=== PATIENT | female | born 1930 | race Caucasian/White ===

== ENCOUNTER 2019-09-13 09:06 | Inpatient (IN) ==
[2019-09-13] MEDS ORDERED: ONDANSETRON 4 MG/2 ML VIAL IV ONE (09:30)
--- NOTE | 2019-09-13 09:40 | Emergency Department Note ---
Lower Extremity Injury HPI - General Chief Complaint: Extremity Injury, Lower Stated Complaint: Hip fracture Time Seen by Provider: 09/13/19 09:10 Source: EMS Mode of arrival: EMS Limitations: no limitations - History of Present Illness HPI Narrative: This pleasant 89-year-old female lives with her son and [id number] in [facility] and was transferred here after was found to have a left intertrochanteric hip fracture from a fall yesterday. It was reported as a ground-level fall with no head injury or loss of consciousness although may have bumped her head. She is not on any chronic anticoagulants but was unable to walk and was further evaluated after transfer up by EMS to the local pharmacy and then transferred here for more definitive treatment of her left intertrochanteric hip fracture. REVIEW OF SYSTEMS: Experiencing nausea but not vomiting. Other history of uncertain reliability due to dementia. - Related Data Home Medications Medication Instructions Recorded Confirmed Acetaminophen [Acetaminophen Extra 500 mg PO Q6H PRN 09/13/19 09/13/19 Strength] Ferrous Sulfate [Iron] 325 mg PO Q2D 09/13/19 09/13/19 HYDROcodone/ACETAMINOPHEN [[place] 1 each PO Q12HP PRN 09/13/19 09/13/19 5-325 Tablet] Nystatin 1 dose TOPICAL BID 09/13/19 09/13/19 Omeprazole [Prilosec] 20 mg PO ACB 09/13/19 09/13/19 QUEtiapine [Seroquel] 100 mg PO HS 09/13/19 09/13/19 Sertraline [Zoloft] 50 mg PO DAILY 09/13/19 09/13/19 Previous Rx's Medication Instructions Recorded HYDROcodone/APAP 5/325MG [[place] 1 tab PO Q4-6HP PRN #60 tab 09/15/19 5-325Mg] Amoxicillin 500 mg PO TID #12 cap 09/16/19 Enoxaparin [Lovenox] 30 mg SQ BID #56 syringe 09/17/19 Allergies Allergy/AdvReac Type Severity Reaction Status Date / Time No Known Drug Allergies Allergy Verified 09/13/19 09:07 Past Medical History - Past Medical History PMFSH Narrative: Medical History (Last Updated 09/13/19 @ 09:35 by Matthew Younegr DO) 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) use of opiate analgesic (Chronic) Dementia (Chronic) History of pneumonia (Chronic) Anemia (Chronic) Osteoarthritis (Chronic) Gastric outlet obstruction (Chronic) Weight loss, unintentional (Chronic) Past Surgical History (Last Updated 09/13/19 @ 09:40 by Matthew Younger DO) History of appendectomy (Acute) History of bilateral knee replacement (Acute) History of cholecystectomy (Acute) History of colonoscopy (Acute) History of elbow surgery (Acute) History of hysterectomy (Acute) History of right hip replacement (Acute) - Social History smoking status: Never smoker Physical Exam Limitations: no limitations General appearance: alert, in no apparent distress, other (Pleasant but occasional mild retching) Head: atraumatic Eye: Present: EOMI ENT: Present: other (Lips and tongue somewhat dry.) Neck: Present: trachea midline. Absent: lymphadenopathy, thyromegaly Chest: Present: symmetric chest wall rise Respiratory: Present: normal lung sounds bilaterally. Absent: respiratory di stress, wheezes, stridor, accessory muscle use, prolonged expiratory phase Cardiovascular: Present: regular rate, normal rhythm. Absent: systolic murmur, diastolic murmur Abdominal: Present: soft, other (Has some extra folds of tissue from weight lo ss.). Absent: distention, tenderness, guarding, rebound, rigidity, organomegaly, mass Extremities: Present: other (Both lower extremities are externally rotated but her left hip hurts quite a bit with any movement but at rest pain seems to be well controlled.). Absent: pedal edema, pretibial edema, calf tenderness Neurological: Present: alert, CN II-XII intact. Absent: oriented X3 Psychiatric: Present: normal affect, polite, pleasant. Absent: agitated Skin: Present: warm, dry Course Vital Signs Temperature 97.9 F 09/13/19 09:07 Pulse Rate 76 09/13/19 09:07 Respiratory Rate 16 09/13/19 09:07 Blood Pressure 139/74 09/13/19 09:07 Pulse Oximetry (%) 96 09/13/19 09:07 Temperature 98.4 F 09/17/19 08:00 Pulse Rate 73 09/17/19 08:00 Respiratory Rate 18 09/17/19 08:00 Blood Pressure 127/76 09/17/19 08:00 Pulse Oximetry (%) 95 09/17/19 08:00 Extremity Injury, Lower - MDM Narrative Medical decision making narrative: 9:32 AM - interviewed and examined. History gathered from chart from transfer. Family not present at this point in time. Left hip intertrochanteric fracture from a ground-level fall that was not witnessed. No other specific trauma noted. In her chart is a pressure ulcer stage I. This was not examined due to her hip fracture. She has several medical conditions of anemia, gastric outlet obstruction, weight loss, unintentional, dementia, arthritis and a UTI. I will give IV antibiotic as 1 g of Ancef to cover for the UTI and possibly surgery. EKG is unremarkable with no signs of ACS. Her vital signs are stable. Her risks are moderate based on age and underlying conditions. We will check a Chem-8 (recheck hemoglobin) and give a liter of fluid over couple of hours; has very dry lips. Ondansetron ordered for her nausea/retching. In her chart also is that she has been on chronic narcotics. This is not able to be clarified at this point in time. CODE STATUS needs to be clarified as well. Family apparently is coming shortly. Seems relatively stable to be able to go to surgery when available. - Lab Data Result diagrams: 09/15/19 16:05 09/15/19 05:35 Lab Results 09/13/19 Range/Units 09:54 POC Hct 33.0 L (36.0-48.0) % POC Sodium 139 (133-145) mmol/L POC Potassium 4.7 (3.3-5.1) mmol/L POC Chloride 106 (96-108) mmol/L POC Total CO2 27 (22-30) mmol/L POC BUN 29 H (8-23) mg/dl POC Creatinine 0.9 (0.6-1.1) mg/dl POC Glucose 147 H (70-105) mg/dL POC WB Ioniz Calcium 1.33 H (1.16-1.32) mmol/L Disposition Pt seen by SUPERVISOR FINAL/PA only: No Clinical Impression: Fall from ground level Hip fracture, left Qualifiers: Encounter type: subsequent encounter Fracture type: closed Fracture healing: with routine healing Qualified Code(s): S72.002D - Fracture of unspecified part of neck of left femur, subsequent encounter for closed fracture with routine hea ling Dementia Qualifiers: Dementia type: unspecified type Dementia behavioral disturbance: without behavioral disturbance Qualified Code(s): F03.90 - Unspecified dementia without behavioral disturbance UTI (urinary tract infection) Qualifiers: Urinary tract infection type: acute cystitis Hematuria presence: without megan turia Qualified Code(s): N30.00 - Acute cystitis without hematuria Disposition: Xfer As Outpt/Obs ([facility]) Condition: Fair
[2019-09-13 10:01] LABS: POC Blood Urea Nitrogen 29 mg/dl (8-23); POC CO2 27 mmol/L (22-30); POC Calcium, Ionized 1.33 mmol/L (1.16-1.32); POC Chloride 106 mmol/L (96-108); POC Creatinine 0.9 mg/dl (0.6-1.1); POC Glucose, Random 147 mg/dL (70-105); POC Potassium 4.7 mmol/L (3.3-5.1); POC Sodium 139 mmol/L (133-145)
[2019-09-13] MEDS ORDERED: ceFAZolin 1 GM VIAL IV ONE (10:05)
[2019-09-13] MEDS: 0.9 % SODIUM CHLORIDE 1,000 ML IV SCH ×4 (10:18→21:22)
--- NOTE | 2019-09-13 10:41 | Internal Med History&Physical ---
Medical - H&P: HPI Patient information: Note initiated : 09/13/19 at 10:36 am Service Date, if different from initiated Date: [] Patient: Margarita Kathleen 89 y/o F admitted on for Hip fracture. Chief Complaint: [] History of present illness: Ms. Kathleen is a 89 year old F Who resides in [facility] living with her son and [id number]-axb and suffered a ground-level fall. No LOC. Patient was found to have a left hip fracture. Patient transferred here for surgery by Dr. Salguero. States she got up in the middle the night several nights ago and lost her balance. Patient's hip pain is currently controlled. Currently in preop Review of Systems: Pertinent positives as above. Denies headache/fever/ chills/nausea/vomiting/chest or abdominal pain/cough/dyspnea/diarrhea. 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) use of opiate analgesic (Chronic) Dementia (Chronic) History of pneumonia (Chronic) Anemia (Chronic) Osteoarthritis (Chronic) Gastric outlet obstruction (Chronic) Weight loss, unintentional (Chronic) Past Surgical History (Last Updated 09/13/19 @ 09:40 by Matthew Younger DO) History of appendectomy (Acute) History of bilateral knee replacement (Acute) History of cholecystectomy (Acute) History of colonoscopy (Acute) History of elbow surgery (Acute) History of hysterectomy (Acute) History of right hip replacement (Acute) Family history: Had breast cancer Father is healthy Social history: Patient denies tobacco or alcohol Ambulates with walker Lives with her son and [id number] Medical - H&P: Meds Home Medications Medication Instructions Recorded Confirmed Type Acetaminophen [Acetaminophen Extra 500 mg PO Q6H PRN 09/13/19 09/13/19 History Strength] Ferrous Sulfate [Iron] 325 mg PO Q2D 09/13/19 09/13/19 History HYDROcodone/ACETAMINOPHEN [[place] 1 each PO Q12HP PRN 09/13/19 09/13/19 History 5-325 Tablet] Nystatin [Kenalog] 1 dose TOPICAL BID 09/13/19 09/13/19 History Omeprazole [PriLOSEC] 20 mg PO ACB 09/13/19 09/13/19 History QUEtiapine [SEROquel] 100 mg PO HS 09/13/19 09/13/19 History Sertraline [Zoloft] 50 mg PO DAILY 09/13/19 09/13/19 History Allergies Allergy/AdvReac Type Severity Reaction Status Date / Time No Known Drug Allergies Allergy Verified 09/13/19 09:07 Medical - H&P: Exam - Constitutional Vitals: Temp Pulse Resp BP Pulse Ox 97.9 F 73 16 125/69 91 09/13/19 10:34 09/13/19 10:34 09/13/19 10:34 09/13/19 10:34 09/13/19 10:34 Exam: General: Alert, Awake, No acute Distress Eyes/N/T: EOMI, PERRL, dry MM Head/Neck: neck supple, normocephalic atraumatic CV: RRR, No murmurs, normal s1/s2 Pulm: Clear b/l, no wheezing/rhonchi/rales Abd: soft, nontender, +BS x4 Ext: no clubbing/cyanosis/edema. Left lower extremity shortened and externally rotated Neuro: Alert, no focal deficits, moves all extremities, CN 2-12 grossly intact, symmetrical strength b/l upper/lower, sensations intact b/l upper/lower Skin: warm/dry Medical - H&P: A/P - Narrative A/P Narrative: A: *Left hip fracture: *Dementia: *Depression/anxiety: *GERD: *MOJGAN: * P: -Noemy for Ortho -Pain control -Hi risk for post-op delirium -Continue home psych meds - -DT/OT -ppx: Stopped per Ortho/home PPI clarify code status
[2019-09-13] MEDS ORDERED: IPRATROPIUM/ALBUTEROL 3 ML AMPUL.NEB NEB PRN ×2 (10:55→12:19)
[2019-09-13] MEDS ORDERED: POTASSIUM CHLORIDE 20 MEQ TABLET PO PRN ×2 (10:55)
[2019-09-13] MEDS ORDERED: MAGNESIUM SULFATE 2 GM/50 ML BAG IV PRN (10:55)
[2019-09-13] MEDS ORDERED: POLYETHYLENE GLYCOL 3350 17 GM PACKET PO PRN (10:55)
[2019-09-13] MEDS ORDERED: ACETAMINOPHEN 325 MG TABLET PO PRN (10:55)
[2019-09-13] MEDS ORDERED: SENNOSIDES 1 TABLET PO PRN (10:55)
[2019-09-13] MEDS ORDERED: ONDANSETRON 4 MG/2 ML VIAL IV PRN ×2 (10:55→12:19)
[2019-09-13] MEDS ORDERED: POTASSIUM CHLORIDE 40 MEQ in DEXTROSE 5% IN WATER 500 ML IV PRN (10:55)
[2019-09-13] MEDS ORDERED: ceFAZolin 2 GM in DEXTROSE 5% IN WATER 50 ML IV SCH ×2 (11:00→12:30)
[2019-09-13] MEDS ORDERED: LIDOCAINE HCL/PF 100 MG/5 ML SYRINGE IV ONE (11:35)
[2019-09-13] MEDS ORDERED: DEXAMETHASONE 10 MG/ML VIAL IV ONE (11:35)
[2019-09-13] MEDS ORDERED: PROPOFOL 200 MG/20 ML VIAL IV ONE (11:35)
[2019-09-13] MEDS ORDERED: ACETAMINOPHEN 700 MG/70 ML BOTTLE IV ONE (12:19)
[2019-09-13] MEDS ORDERED: MEPERIDINE 25 MG/ML SYRINGE IV PRN (12:19)
[2019-09-13] MEDS ORDERED: fentaNYL 100 MCG/2 ML VIAL IV PRN (12:19)
[2019-09-13] MEDS ORDERED: LACTATED RINGERS 250 ML IV PRN (12:19)
[2019-09-13] MEDS ORDERED: PROMETHAZINE 25 MG/ML VIAL IV PRN (12:19)
[2019-09-13] MEDS ORDERED: NALOXONE HCL 0.4 MG/ML VIAL IV PRN (12:19)
[2019-09-13] MEDS ORDERED: FLUMAZENIL 0.1 MG/ML ML IV PRN (12:19)
[2019-09-13] MEDS ORDERED: diphenhydrAMINE 50 MG/ML VIAL IV PRN (12:19)
[2019-09-13] MEDS ORDERED: KETOROLAC 15 MG/ML VIAL IV PRN (12:21)
[2019-09-13] MEDS ORDERED: BENZOCAINE/MENTHOL 1 LOZENGE PO PRN (12:21)
[2019-09-13] MEDS ORDERED: BISACODYL 10 MG SUPP.RECT PR PRN (12:21)
[2019-09-13] MEDS ORDERED: FLEETS ADULT ENEMA PR PRN (12:21)
[2019-09-13] MEDS ORDERED: MAGNESIUM HYDROXIDE 30 ML ORAL.SUSP PO PRN (12:21)
--- NOTE | 2019-09-13 12:21 | Brief Operative Note ---
Date of procedure: 09/13/19 Pre-op diagnosis: Left intertrochanteric hip fracture, closed Post-op diagnosis: same Procedure: Open treatment internal fixation of Left hip intertrochanteric fracture with intramedullary arline fixation Grafts/Implants: Yes ([place] gamma nail, short) Anesthesia: GLMA Findings: extreme osteoporosis Complications: none Surgeon: Lester Salguero Management Trainee: Tai Cervantes Estimated blood loss (cc): 100 Specimens Removed/Pathology: none sent Condition: stable Disposition: PACU
[2019-09-13] MEDS ORDERED: LACTATED RINGERS 1,000 ML IV SCH (12:30)
--- NOTE | 2019-09-13 13:18 | Operative Note ---
DATE OF OPERATION: 09/13/2019 PREOPERATIVE DIAGNOSIS: Left hip closed intertrochanteric fracture. POSTOPERATIVE DIAGNOSIS: Left hip closed intertrochanteric fracture. PROCEDURE PERFORMED: Open treatment and internal fixation of left intertrochanteric hip fracture with intramedullary fixation using a short gamma nail. SURGEON: Lester Salguero MD RN PERINATAL: Tai Cervantes PA-C. This provider's expertise and technical skill were required throughout the case. The PA assisted with preoperative coordination, intraoperative retraction, wound closure, dressing and splint application, as well as postoperative documentation and care coordination. ANESTHESIA: By general. DRAINS: None. SPECIMENS: None. COMPLICATIONS: None. BLOOD LOSS: 100 mL POSTOPERATIVE CONDITION: Fair. INDICATIONS FOR SURGERY: This is an 89-year-old female who fell last night injuring her left hip. She is unable to bear weight. X-rays taken showed an intertrochanteric fracture. FINDINGS AT SURGERY: She had severe osteoporosis with an intertrochanteric hip fracture. There was also a femoral plate extending up to mid femur as well. Post-fixation showed satisfactory fracture reduction and hardware in acceptable position. PROCEDURE IN DETAIL: The patient had been seen in preoperative holding. Informed consent had been obtained after discussion of risks and benefits of surgery. Risks including, but not limited to, bleeding; infection; injury to nerves, blood vessels, and other surrounding structures; anesthetic risks; nonunion or malunion of fracture; failure of hardware fixation; possibility of needing further surgery; and DVT and pulmonary embolus risks. She seemed to understand as best possible, so patient was taken directly to operating room and general anesthesia induced. She was carefully positioned on the fracture table and the left leg was placed in some gentle traction with internal rotation. The left hip and leg were then carefully prepped and draped in normal sterile fashion and then a shower curtain drape was placed. Fluoroscopy was used to identify our incision starting point just proximal to greater trochanter and this was made in line with the femur. Hemostasis was obtained with Bovie cautery. We continued with the Bovie down through the IT band. Blunt finger dissection was taken down on the tip of the trochanter and then a guide pin was placed under fluoroscopic guidance starting on the tip of the trochanter extending down to approximately the level of the lesser. We checked the lateral view. We did have to adjust pin position until we were centered in the head. AP view, we were inferior to center, but we felt that would be helpful given her extreme osteoporosis. We then used the opening reamer over the guide pin. We then used a 08/31 short gamma nail and this was passed over the guide pin. An incision was made lateral and then the sleeve was taken down to bone. We adjusted the nail height so the lag screw would be on the inferior half of the neck and centered on the lateral view. We then used an opening drill and then a guide pin was passed up and adjusted so we were central on the lateral view and on the inferior half of the head on the AP. We measured this to be an 80 screw. We used the step reamer to ream to 80 and an 80 lag screw was opened. This was advanced over the guide pin until we were within a cm of the articular surface on both AP and lateral view. The locking screw was then placed in the proximal end of the nail and advanced until it would not turn, then we backed off a quarter turn to allow sliding compression. The guide pin was removed. We then removed the sleeve and the distal sleeve was passed through the jig and a stab incision made distally. The sleeve was taken down on the bone. We then drilled the distal interlocking screw bicortical, measured a 35, so a 3.5 screw was opened. This was advanced until it got all the way down to cortical bone. Final fluoro images were taken and saved, AP and lateral views proximal and distal. We then irrigated copiously with saline. The proximal fascia was closed with a running #1 Vicryl. More irrigation was done and 2-0 Monocryl was used for subcutaneous and michelle for skin. Xeroform sterile dressings were applied. The patient was then awakened, extubated, and transferred to recovery in satisfactory condition. AIXA:erlinda Job ID: [id number] Doc ID: [id number] Lester Salguero MD
[2019-09-13] MEDS: 0.9 % SODIUM CHLORIDE 10 ML SYRINGE IV SCH ×2 (14:13→22:07)
--- NOTE | 2019-09-13 14:38 | XRay Report ---
CLINICAL INFORMATION: left hip gamma nail orif intertrochanteric fracture COMPARISON: None. FINDINGS: Digital images from the OR show intertrochanteric fracture reduced to anatomic alignment and transfixed by gamma nail. Severe degeneration in the left hip IMPRESSION: ORIF intertrochanteric fracture transfixed by gamma nail - anatomic alignment. Interpreted and Authenticated by: Iftikhar Hill 09/13/19
[2019-09-13] MEDS: HYDROcodone/APAP 5/325MG TABLET PO PRN (14:51)
[2019-09-13] MEDS ORDERED: WARFARIN 3 MG TABLET PO ONE (18:00)
[2019-09-13] MEDS: ceFAZolin 1 GM VIAL IV SCH (19:51)
[2019-09-13] MEDS: QUEtiapine 100 MG TABLET PO SCH (22:06)
[2019-09-13] MEDS: DOCUSATE SODIUM 100 MG CAPSULE PO SCH (22:06)
[2019-09-13] MEDS: FAMOTIDINE 20 MG TABLET PO SCH (22:06)
[2019-09-14] MEDS: ceFAZolin 1 GM VIAL IV SCH (04:02)
[2019-09-14] MEDS: 0.9 % SODIUM CHLORIDE 10 ML SYRINGE IV SCH ×3 (06:08→20:17)
[2019-09-14 07:08] LABS: Basophils # (Auto) 0.01 K/mcL (0.00-0.30); Basophils % (Auto) 0.2 % (0.0-2.0); Eosinophils # (Auto) 0 K/mcL (0.00-0.70); Eosinophils % (Auto) 0 % (0.0-7.0); Hematocrit 24.3 % (34.1-44.9); Lymphocytes # (Auto) 0.73 K/mcL (1.50-4.80); Lymphocytes % (Auto) 16.7 % (15.5-49.0); Mean Cell Volume 98.4 fL (80.0-100.0); Mean Corpuscular HGB Conc 32.9 g/dL (31.0-36.0); Mean Platelet Volume 10.5 fL (7.4-10.4); Monocytes # (Auto) 0.44 K/mcL (0.10-0.90); Monocytes % (Auto) 10.1 % (1.0-12.0); Platelet Count 116 K/mcL (140-440); RBC 2.47 M/mcL (3.59-5.38); Red Cell Distribution Width 13.1 % (11.5-14.5); WBC 4.4 K/mcL (4.50-11.00)
[2019-09-14 07:43] LABS: INR 1.2 (0.9-1.1); Prothrombin Time 15.8 sec (11.9-14.5)
[2019-09-14 07:58] LABS: ALT/SGPT 7 U/l (0-40); AST/SGOT 10 U/l (0-37); Albumin/Globulin Ratio 1.7 (1.0-2.3); Alkaline Phosphatase 67 U/L (39-117); Bilirubin,Direct < 0.2 mg/dL (0.0-0.3); Bilirubin,Total 0.3 mg/dL (0.0-1.0); Blood Urea Nitrogen 25 mg/dl (8-23); Calcium 8.8 mg/dl (8.6-10.4); Carbon Dioxide 22 mmol/L (22-30); Globulin 1.8 gm/dL (2.2-3.7); Glomerular Filtration Rate 66; Glucose 116 mg/dL (70-105); Lactate Dehydrogenase 143 U/L (94-250); Phosphorous 2.4 mg/dL (2.7-4.5); Triglycerides 83 mg/dl (<150); Uric Acid 3.6 mg/dL (2.5-8.0)
[2019-09-14 08:00] LABS: Chloride 109 mmol/L (96-108)
--- NOTE | 2019-09-14 08:15 | Internal Med Progress Note ---
Medical - PN: Subj Patient information: Note initiated : 09/14/19 at 8:10 am Service Date, if different from initiated Date: [] Patient: Margarita Kathleen 89 y/o F admitted on 09/13/19 for Hip fracture. Chief Complaint: [] Interval history: Ms. Kathleen is a 89 year old F Who resides in [facility] living with her son and akxrtsgc-qm-ysy and suffered a ground-level fall. No LOC. Patient was found to have a left hip fracture. Patient transferred here for surgery by Dr. Salguero. States she got up in the middle the night several nights ago and lost her balance. Patient's hip pain is currently controlled. Currently in preop 09/14 Tolerated surgery well last yesterday. No overnight events or new complaints. Review of Systems: denies headache/fever/chills/nausea/vomiting/chest or abdominal pain/ cough/dyspnea/diarrhea. Otherwise see above. - Constitutional Vitals: Vital Signs Temp Pulse Resp BP Pulse Ox 98.4 F 82 16 95/53 94 09/14/19 07:16 09/14/19 04:00 09/14/19 07:16 09/14/19 07:16 09/14/19 07:16 Period Temp Pulse Resp BP Sys/Kahn Pulse Ox Last 24 Hr 97.4 F-99.9 F 67-82 10-20 87-139/50-86 90-100 Intake and Output 09/13/19 09/14/19 09/14/19 21:59 05:59 13:59 Intake Total 1050 50 Output Total 100 250 Balance 950 -200 Weight 46.584 kg Intake & Output: Intake & Output 09/13/19 09/14/19 09/14/19 21:59 05:59 13:59 Intake Total 1050 50 Output Total 100 250 Balance 950 -200 Weight 46.584 kg Intake: IV 1000 Sodium Chloride 0.9% 1,000 ml @ 1000 250 mls/hr IV .Q4H [facility] Rx#: [id number] Oral 50 50 Output: Urine Catheter Amount 100 250 Other: Urine Appearance Clear Uretheral (Reddy) Clear Urine Color Dark Alejandra Uretheral (Reddy) Dark Alejandra Exam: General: Alert, Awake, No acute Distress Eyes/N/T: EOMI, Head/Neck: neck supple, CV: RRR, No murmurs, Pulm: Clear b/l, no wheezing/rhonchi/rales Abd: soft, nontender, +BS x4 Ext: no clubbing/cyanosis/edema. Neuro: Alert, no focal deficits, moves all extremities, Skin: warm/dry Medical - PN: Obj Da - Labs CBC & Chem 7: 09/14/19 05:50 09/14/19 05:50 Labs: Abnormal Lab Results 09/14/19 09/14/19 09/14/19 05:50 05:50 05:50 WBC 4.4 L RBC 2.47 L Hgb 8.0 L Hct 24.3 L POC Hct Plt Count 116 L MPV 10.5 H Lymph # (Auto) 0.73 L PT 15.8 H INR 1.2 H Chloride 109 H Anion Gap 6.0 L POC BUN BUN 25 H Glucose 116 H POC Glucose POC WB Ioniz Calcium Phosphorus 2.4 L Total Protein 4.8 L Albumin 3.0 L Globulin 1.8 L 09/13/19 09:54 WBC RBC Hgb Hct POC Hct 33.0 L Plt Count MPV Lymph # (Auto) PT INR Chloride Anion Gap POC BUN 29 H BUN Glucose POC Glucose 147 H POC WB Ioniz Calcium 1.33 H Phosphorus Total Protein Albumin Globulin Meds: Medications Acetaminophen (Tylenol) 650 mg PO Q6HP PRN PRN Reason: PAIN/FEVER > 101 Hydrocodone Bitart/Acetaminophen ([place] 5/325mg) 1 tab PO Q4HP PRN PRN Reason: PAIN LEVEL 3-6 Last Admin: 09/13/19 14:51 Dose: 1 tab Documented by: Albuterol/Ipratropium (Duoneb) 3 ml NEB Q4HP PRN PRN Reason: Shortness Of Breath Bisacodyl (Dulcolax) 10 mg [place] Q2-3DAYS PRN PRN Reason: Constipation Docusate Sodium (Colace) 100 mg PO BID [facility] Last Admin: 09/13/19 22:06 Dose: 100 mg Documented by: Famotidine (Pepcid) 20 mg PO BID [facility] Last Admin: 09/13/19 22:06 Dose: 20 mg Documented by: Potassium Chloride 40 meq/ (Dextrose) 520 mls @ 130 mls/hr IV UD PRN PRN Reason: Potassium < 3 Magnesium Sulfate (Magnesium Sulfate) 2 gm in 50 mls @ 50 mls/hr IV UD PRN PRN Reason: Magnesium </= 1.6 Sodium Chloride (Sodium Chloride 0.9%) 1,000 mls @ 60 mls/hr IV .[id number] [facility] Last Admin: 09/13/19 21:22 Dose: 60 mls/hr Documented by: Ketorolac Tromethamine (Toradol) 15 mg IV Q6HP PRN; Protocol PRN Reason: Per Pain Protocol Stop: 09/15/19 12:23 Last Admin: 09/13/19 21:30 Dose: 15 mg Documented by: Magnesium Hydroxide (Milk Of Magnesia) 30 ml PO BIDP PRN PRN Reason: Constipation Morphine Sulfate (Morphine) 0 mg IV Q1HP PRN; Protocol PRN Reason: Per Pain Protocol Ondansetron HCl (Zofran) 4 mg IV Q4HP PRN PRN Reason: Nausea And Vomiting Polyethylene Glycol (Miralax) 17 gm PO DAILYP PRN PRN Reason: Constipation Potassium Chloride (Kdur) 40 meq PO UD PRN PRN Reason: Potssium is 3-3.5 Potassium Chloride (Kdur) 40 meq PO UD PRN PRN Reason: Potassium < 3 Quetiapine Fumarate (Seroquel) 100 mg PO HS [facility] Last Admin: 09/13/19 22:06 Dose: 100 mg Documented by: Aretha (Senokot) 2 tab PO DAILYP PRN PRN Reason: Constipation Sertraline HCl (Zoloft) 50 mg PO DAILY [facility] Sodium Biphosphate/Sodium Phosphate (Fleets Adult) 1 dose [place] Q3-4DAYS PRN PRN Reason: Constipation Sodium Chloride (Saline Flush) 10 ml IV Q8 [facility] Last Admin: 09/14/19 06:08 Dose: Not Given Documented by: Throat Lozenges (Cepacol) 1 lozenge PO PRN PRN PRN Reason: Sore Throat Warfarin Sodium (Coumadin Per Pharmacy) 1 order PO [facility] [place] [facility] Medical - PN: A/P - Time Spent With Patient Total time spent is greater than 50% in coordination of care (as documented) at patient's floor/unit and/or counseling patient: - Narrative A/P Narrative: A: *Left hip fracture: s/p ORIF (09/13) *Dementia: *Depression/anxiety: *GERD: *MOJGAN +post-op anemia with component of dilution: * P: -Noemy for Ortho -Pain control -High risk for post-op delirium -monitor H&H, f/u -Continue home psych meds - -PT/OT -ppx: warfarin per pharm/home PPI DNR Medical - PN: Qual - VTE Deep Vein Thrombosis/Pulmonary Embolism Present on Admission: No
[2019-09-14] MEDS: DOCUSATE SODIUM 100 MG CAPSULE PO SCH ×2 (08:41→20:16)
[2019-09-14] MEDS: SERTRALINE 50 MG TABLET PO SCH (08:41)
[2019-09-14] MEDS: FAMOTIDINE 20 MG TABLET PO SCH ×2 (08:41→20:16)
[2019-09-14] MEDS: HYDROcodone/APAP 5/325MG TABLET PO PRN ×2 (11:39→20:16)
--- NOTE | 2019-09-14 11:47 | Orthopedic Progress Note ---
Subjective Patient information: Note initiated : 09/14/19 at 11:45 am Service Date, if different from initiated Date: [] Patient: Margarita Kathleen 89 y/o F admitted on 09/13/19 for Hip fracture. Chief Complaint: [] Principal diagnosis: Left hip intertroch fracture Interval history: c/o pain in hip Objective Vital signs: Vital Signs Temp Pulse Resp BP Pulse Ox 09/14/19 08:00 98.4 F 16 93/53 94 09/14/19 07:16 98.4 F 16 95/53 94 09/14/19 04:00 98.7 F 82 20 98/56 92 09/14/19 00:00 98.0 F 74 15 87/50 93 09/13/19 19:45 95 09/13/19 19:30 98.6 F 79 18 91/56 95 09/13/19 17:00 99.4 F H 75 20 120/75 92 09/13/19 16:00 99.5 F H 20 124/71 92 09/13/19 15:51 73 132/67 93 09/13/19 14:15 74 131/76 92 09/13/19 14:00 67 136/75 100 09/13/19 13:45 70 136/63 09/13/19 13:30 69 139/78 100 09/13/19 13:24 97.4 F 73 14 131/76 91 09/13/19 13:05 99.1 F H 69 12 138/62 91 09/13/19 12:50 71 10 L 135/73 99 09/13/19 12:45 71 12 138/86 100 09/13/19 12:40 70 13 131/75 100 09/13/19 12:34 99.9 F H 79 12 119/70 99 Intake and Output 09/13/19 09/14/19 09/14/19 21:59 05:59 13:59 Intake Total 1050 50 Output Total 100 250 Balance 950 -200 Intake: IV 1000 Sodium Chloride 0.9% 1,000 ml @ 1000 250 mls/hr IV .Q4H [facility] Rx#: [id number] Oral 50 50 Output: Urine Catheter Amount 100 250 Other: Urine Appearance Clear Clear Uretheral (Reddy) Clear Clear Urine Color Dark Alejandra Dark Alejandra Uretheral (Reddy) Dark Alejandra Dark Alejandra Urine Odor Strong Weight 102 lb 11.2 oz Intake & Output: Intake & Output 09/13/19 09/14/19 09/14/19 21:59 05:59 13:59 Intake Total 1050 50 Output Total 100 250 Balance 950 -200 Weight 102 lb 11.2 oz Intake: IV 1000 Sodium Chloride 0.9% 1,000 ml @ 1000 250 mls/hr IV .Q4H [facility] Rx#: [id number] Oral 50 50 Output: Urine Catheter Amount 100 250 Other: Urine Appearance Clear Clear Uretheral (Reddy) Clear Clear Urine Color Dark Alejandra Dark Alejandra Uretheral (Reddy) Dark Alejandra Dark Alejandra Urine Odor Strong Dressing: Yes intact (w some shadow drainage) Neurological exam IM: Yes alert - Labs CBC & BMP: 09/14/19 05:50 09/14/19 05:50 Labs: Orthopedic Labs 09/14/19 05:50 PT 15.8 H INR 1.2 H 09/14/19 05:50 Hgb 8.0 L Hct 24.3 L Assessment and Plan (1) Hip fracture, left POD#1 s/p ORIF L IT fx-ortho stable -monitor hgb and BP, possibly transfuse -mobilize as possible -pain control -likely d/c to swing bed on Monday Status: Acute Qualifiers: Encounter type: subsequent encounter Fracture type: closed Fracture healing: with routine healing Qualified Code(s): S72.002D - Fracture of unspecified part of neck of left femur, subsequent encounter for closed fracture with routine healing
[2019-09-14] MEDS ORDERED: WARFARIN 3 MG TABLET PO ONE (14:00)
[2019-09-14] MEDS: 0.9 % SODIUM CHLORIDE 1,000 ML IV SCH (14:21)
[2019-09-14 15:34] LABS: Hemoglobin 8.4 g/dL (11.2-15.7)
[2019-09-14] MEDS: QUEtiapine 100 MG TABLET PO SCH (20:16)
[2019-09-14] MEDS ORDERED: 0.9 % SODIUM CHLORIDE 250 ML IV ONE (22:55)
[2019-09-15] MEDS: HYDROcodone/APAP 5/325MG TABLET PO PRN ×3 (04:07→20:04)
[2019-09-15] MEDS: 0.9 % SODIUM CHLORIDE 1,000 ML IV SCH (05:08)
[2019-09-15 06:52] LABS: INR 1.6 (0.9-1.1); Prothrombin Time 19.5 sec (11.9-14.5)
[2019-09-15 07:06] LABS: Basophils # (Auto) 0.01 K/mcL (0.00-0.30); Basophils % (Auto) 0.2 % (0.0-2.0); Eosinophils # (Auto) 0.12 K/mcL (0.00-0.70); Eosinophils % (Auto) 2.4 % (0.0-7.0); Granulocytes % (Auto) 69.6 % (38.0-78.0); Hematocrit 23.9 % (34.1-44.9); Hemoglobin 7.6 g/dL (11.2-15.7); Lymphocytes # (Auto) 1.01 K/mcL (1.50-4.80); Lymphocytes % (Auto) 20.5 % (15.5-49.0); Mean Cell Volume 100.4 fL (80.0-100.0); Mean Corpuscular HGB Conc 31.8 g/dL (31.0-36.0); Mean Platelet Volume 10.5 fL (7.4-10.4); Monocytes # (Auto) 0.36 K/mcL (0.10-0.90); Monocytes % (Auto) 7.3 % (1.0-12.0); Platelet Count 110 K/mcL (140-440); RBC 2.38 M/mcL (3.59-5.38); Red Cell Distribution Width 13.4 % (11.5-14.5); WBC 4.9 K/mcL (4.50-11.00)
[2019-09-15 07:51] LABS: Bilirubin,Direct < 0.2 mg/dL (0.0-0.3)
[2019-09-15 08:21] LABS: ALT/SGPT < 5 U/l (0-40); AST/SGOT 9 U/l (0-37); Albumin 2.9 gm/dL (3.2-5.2); Albumin/Globulin Ratio 1.4 (1.0-2.3); Alkaline Phosphatase 66 U/L (39-117); Bilirubin,Total 0.3 mg/dL (0.0-1.0); Blood Urea Nitrogen 31 mg/dl (8-23); Calcium 8.4 mg/dl (8.6-10.4); Carbon Dioxide 20 mmol/L (22-30); Chloride 109 mmol/L (96-108); Globulin 2.1 gm/dL (2.2-3.7); Glomerular Filtration Rate 66; Glucose 117 mg/dL (70-105); Lactate Dehydrogenase 147 U/L (94-250); Phosphorous 2.3 mg/dL (2.7-4.5); Triglycerides 68 mg/dl (<150); Uric Acid 3.6 mg/dL (2.5-8.0)
--- NOTE | 2019-09-15 08:34 | Internal Med Progress Note ---
Medical - PN: Subj Patient information: Note initiated : 09/15/19 at 8:29 am Service Date, if different from initiated Date: [] Patient: aMrgarita Kathleen 89 y/o F admitted on 09/13/19 for Hip fracture. Chief Complaint: [] Interval history: Ms. Kathleen is a 89 year old F Who resides in [facility] living with her son and [id number] and suffered a ground-level fall. No LOC. Patient was found to have a left hip fracture. Patient transferred here for surgery by Dr. Salguero. States she got up in the middle the night several nights ago and lost her balance. Patient's hip pain is currently controlled. Currently in preop 09/14 Tolerated surgery well last yesterday. No overnight events or new complaints. 09/15 Patient little tachycardia's morning hemoglobin dropped to 7.6. Systolic blood pressure in the 90s. Will transfuse 1 unit of blood. Patient denies any pains or complaints. Review of Systems: denies headache/fever/chills/nausea/vomiting/chest or abdominal pain/cough/dyspnea/diarrhea. Otherwise see above. - Constitutional Vitals: Vital Signs Temp Pulse Resp BP Pulse Ox 97.9 F 108 H 16 96/62 97 09/15/19 07:38 09/15/19 07:38 09/15/19 07:38 09/15/19 07:38 09/15/19 07:38 Period Temp Pulse Resp BP Sys/Kahn Pulse Ox Last 24 Hr 97.9 F-99 F 79-114 14-20 91-123/53-64 91-97 Intake and Output 09/14/19 09/15/19 09/15/19 21:59 05:59 13:59 Intake Total 1920 1187 250 Output Total 200 200 Balance 1720 987 250 Weight 49.986 kg Intake & Output: Intake & Output 09/14/19 09/15/19 09/15/19 21:59 05:59 13:59 Intake Total 1920 1187 250 Output Total 200 200 Balance 1720 987 250 Weight 49.986 kg Intake: IV 1000 887 250 Sodium Chloride 0.9% 1,000 ml @ 1000 887 60 mls/hr IV .[id number] [facility] Rx#: [id number] Sodium Chloride 0.9% 250 ml @ 250 125 mls/hr IV BOLUS ONE Rx#: [id number] Oral 920 300 Output: Urine Catheter Amount 200 200 Other: Meal orange sherbert orange miriam Percent of Meal Consumed 100% 100% Feeding Ability Total Assistance Total Assistance Urine Appearance Clear Uretheral (Reddy) Clear Urine Color Dark Yellow Uretheral (Reddy) Dark Alejandra Exam: General: Alert, Awake, No acute Distress Eyes/N/T: EOMI, Head/Neck: neck supple, CV: RRR, No murmurs, Pulm: Clear b/l, no wheezing/rhonchi/rales Abd: soft, nontender, +BS x4 Ext: no clubbing/cyanosis/edema. Neuro: Alert, no focal deficits, moves all extremities, Skin: warm/dry Medical - PN: Obj Da - Labs CBC & Chem 7: 09/15/19 05:35 09/15/19 05:35 Labs: Abnormal Lab Results 09/15/19 09/15/19 09/15/19 05:35 05:35 05:35 WBC RBC 2.38 L Hgb 7.6 L Hct 23.9 L POC Hct MCV 100.4 H Plt Count 110 L MPV 10.5 H Lymph # (Auto) 1.01 L PT 19.5 H INR 1.6 H Chloride 109 H Carbon Dioxide 20 L Anion Gap POC BUN BUN 31 H Glucose 117 H POC Glucose Calcium 8.4 L POC WB Ioniz Calcium Phosphorus 2.3 L Total Protein 5.0 L Albumin 2.9 L Globulin 2.1 L 09/14/19 09/14/19 09/14/19 15:00 05:50 05:50 WBC RBC Hgb 8.4 L Hct 26.0 L POC Hct MCV Plt Count MPV Lymph # (Auto) PT 15.8 H INR 1.2 H Chloride 109 H Carbon Dioxide Anion Gap 6.0 L POC BUN BUN 25 H Glucose 116 H POC Glucose Calcium POC WB Ioniz Calcium Phosphorus 2.4 L Total Protein 4.8 L Albumin 3.0 L Globulin 1.8 L 09/14/19 09/13/19 05:50 09:54 WBC 4.4 L RBC 2.47 L Hgb 8.0 L Hct 24.3 L POC Hct 33.0 L MCV Plt Count 116 L MPV 10.5 H Lymph # (Auto) 0.73 L PT INR Chloride Carbon Dioxide Anion Gap POC BUN 29 H BUN Glucose POC Glucose 147 H Calcium POC WB Ioniz Calcium 1.33 H Phosphorus Total Protein Albumin Globulin Meds: Medications Acetaminophen (Tylenol) 650 mg PO Q6HP PRN PRN Reason: PAIN/FEVER > 101 Hydrocodone Bitart/Acetaminophen ([place] 5/325mg) 1 tab PO Q4HP PRN PRN Reason: PAIN LEVEL 3-6 Last Admin: 09/15/19 04:07 Dose: 1 tab Documented by: Albuterol/Ipratropium (Duoneb) 3 ml NEB Q4HP PRN PRN Reason: Shortness Of Breath Bisacodyl (Dulcolax) 10 mg [place] Q2-3DAYS PRN PRN Reason: Constipation Docusate Sodium (Colace) 100 mg PO BID [facility] Last Admin: 09/14/19 20:16 Dose: 100 mg Documented by: Famotidine (Pepcid) 20 mg PO BID [facility] Last Admin: 09/14/19 20:16 Dose: 20 mg Documented by: Potassium Chloride 40 meq/ (Dextrose) 520 mls @ 130 mls/hr IV UD PRN PRN Reason: Potassium < 3 Magnesium Sulfate (Magnesium Sulfate) 2 gm in 50 mls @ 50 mls/hr IV UD PRN PRN Reason: Magnesium </= 1.6 Sodium Chloride (Sodium Chloride 0.9%) 1,000 mls @ 60 mls/hr IV .[id number] [facility] Last Admin: 09/15/19 05:08 Dose: 60 mls/hr Documented by: Ketorolac Tromethamine (Toradol) 15 mg IV Q6HP PRN; Protocol PRN Reason: Per Pain Protocol Stop: 09/15/19 12:23 Last Admin: 09/13/19 21:30 Dose: 15 mg Documented by: Magnesium Hydroxide (Milk Of Magnesia) 30 ml PO BIDP PRN PRN Reason: Constipation Morphine Sulfate (Morphine) 0 mg IV Q1HP PRN; Protocol PRN Reason: Per Pain Protocol Last Admin: 09/14/19 20:14 Dose: 4 mg Documented by: Ondansetron HCl (Zofran) 4 mg IV Q4HP PRN PRN Reason: Nausea And Vomiting Polyethylene Glycol (Miralax) 17 gm PO DAILYP PRN PRN Reason: Constipation Potassium Chloride (Kdur) 40 meq PO UD PRN PRN Reason: Potssium is 3-3.5 Potassium Chloride (Kdur) 40 meq PO UD PRN PRN Reason: Potassium < 3 Quetiapine Fumarate (Seroquel) 100 mg PO HS [facility] Last Admin: 09/14/19 20:16 Dose: 100 mg Documented by: Senna (Senokot) 2 tab PO DAILYP PRN PRN Reason: Constipation Sertraline HCl (Zoloft) 50 mg PO DAILY [facility] Last Admin: 09/14/19 08:41 Dose: 50 mg Documented by: Sodium Biphosphate/Sodium Phosphate (Fleets Adult) 1 dose [place] Q3-4DAYS PRN PRN Reason: Constipation Sodium Chloride (Saline Flush) 10 ml IV Q8 [facility] Last Admin: 09/14/19 20:17 Dose: Not Given Documented by: Throat Lozenges (Cepacol) 1 lozenge PO PRN PRN PRN Reason: Sore Throat Warfarin Sodium (Coumadin Per Pharmacy) 1 order PO UD [facility] Warfarin Sodium (Coumadin) 1 mg PO ONCE@1400 ONE Stop: 09/15/19 14:01 Medical - PN: A/P - Time Spent With Patient Total time spent is greater than 50% in coordination of care (as documented) at patient's floor/unit and/or counseling patient: - Narrative A/P Narrative: A: *Left hip fracture: s/p ORIF (09/13) *Dementia: *Depression/anxiety: *GERD: *MOJGAN +post-op anemia: * P: -[facility] -Pain control -High risk for post-op delirium -monitor H&H, 1prbc -Continue home psych meds - -PT/OT -ppx: warfarin per pharm/home PPI DNR Medical - PN: Qual - VTE Deep Vein Thrombosis/Pulmonary Embolism Present on Admission: No
[2019-09-15] MEDS ORDERED: 0.9 % SODIUM CHLORIDE 250 ML IV SCH (08:45)
[2019-09-15] MEDS: 0.9 % SODIUM CHLORIDE 10 ML SYRINGE IV SCH ×3 (08:45→21:37)
[2019-09-15] MEDS: DOCUSATE SODIUM 100 MG CAPSULE PO SCH ×2 (08:57→20:04)
[2019-09-15] MEDS: FAMOTIDINE 20 MG TABLET PO SCH ×2 (08:57→20:04)
[2019-09-15] MEDS: SERTRALINE 50 MG TABLET PO SCH (08:57)
--- NOTE | 2019-09-15 09:50 | Orthopedic Progress Note ---
Subjective Patient information: Note initiated : 09/15/19 at 9:50 am Service Date, if different from initiated Date: [] Patient: Margarita Kathleen 89 y/o F admitted on 09/13/19 for left Hip fracture. Pt denies SOB, CP, N/V, abd pain, fevers/chills Chief Complaint: left hip pain Principal diagnosis: Left hip intertroch fracture Pertinent ROS: negative except per HPI. Objective Vital signs: Vital Signs Temp Pulse Resp BP BP BP Pulse Ox 09/15/19 07:38 97.9 F 108 H 16 96/62 97 09/15/19 03:55 98.5 F 114 H 16 93/64 97 09/14/19 22:40 98.7 F 106 H 14 91/53 92 09/14/19 20:00 98 F 79 16 92/60 91 09/14/19 19:09 98 F 79 16 92/60 91 09/14/19 16:00 98.2 F 20 123/58 95 09/14/19 12:00 99 F 20 99/55 96 Intake and Output 09/14/19 09/15/19 09/15/19 21:59 05:59 13:59 Intake Total 1920 1187 467 Output Total 200 200 Balance 1720 987 467 Intake: IV 1000 887 467 Sodium Chloride 0.9% 1,000 ml @ 1000 887 217 60 mls/hr IV .[id number] [facility] Rx#: [id number] Sodium Chloride 0.9% 250 ml @ 250 125 mls/hr IV BOLUS ONE Rx#: [id number] Oral 920 300 Output: Urine Catheter Amount 200 200 Other: Meal orange sherbert orange sherbert Percent of Meal Consumed 100% 100% Feeding Ability Total Assistance Total Assistance Urine Appearance Clear Uretheral (Reddy) Clear Urine Color Dark Yellow Uretheral (Reddy) Dark Alejandra Weight 110 lb 3.2 oz Intake & Output: Intake & Output 09/14/19 09/15/19 09/15/19 21:59 05:59 13:59 Intake Total 1920 1187 467 Output Total 200 200 Balance 1720 987 467 Weight 110 lb 3.2 oz Intake: IV 1000 887 467 Sodium Chloride 0.9% 1,000 ml @ 1000 887 217 60 mls/hr IV .[id number] [facility] Rx#: [id number] Sodium Chloride 0.9% 250 ml @ 250 125 mls/hr IV [facility] ONE Rx#: [id number] Oral 920 300 Output: Urine Catheter Amount 200 200 Other: Meal orange miriam pineda Percent of Meal Consumed 100% 100% Feeding Ability Total Assistance Total Assistance Urine Appearance Clear Uretheral (Reddy) Clear Urine Color Dark Yellow Uretheral (Reddy) Dark Alejandra Dressing: Yes intact (moderate shadow drainage noted.) Weight bearing status: partial (30% WB with LLE.) Neurological exam IM: Yes alert, Yes oriented X3, Yes neurovascular intact Extremities exam IM: No calf tenderness, Yes normal inspection, No Kaela's sign, Yes neurovascular intact - Labs CBC & BMP: 09/15/19 05:35 09/15/19 05:35 Labs: Orthopedic Labs 09/15/19 09/14/19 05:35 05:50 PT 19.5 H 15.8 H INR 1.6 H 1.2 H 09/15/19 09/14/19 09/14/19 05:35 15:00 05:50 Hgb 7.6 L 8.4 L 8.0 L Hct 23.9 L 26.0 L 24.3 L Assessment and Plan (1) Hip fracture, left Status: Acute Qualifiers: Encounter type: subsequent encounter Fracture type: closed Fracture healing: with routine healing Qualified Code(s): S72.002D - Fracture of uns pecified part of neck of left femur, subsequent encounter for closed fracture with routine healing - Narrative A/P Narrative: 89 y/o F POD 2 s/p ORIF left hip fracture with CM nail. Her pain is managed. --H&H trending downward today. Consider transfusion per hospitalist. --f/u with orthopedics in 2 weeks for staple removal and postoperative wound check. --change silver dressing if saturated before discharge. --PT/OT: 30% WB with assistive device --continue pain medications --continue diet --prophy: ambulation, SCDs, warfarin per pharmacy, IS --dispo: likely d/c to swing bed tmrw in [place].
--- NOTE | 2019-09-15 10:02 | Discharge Summary ---
Medical - DS: Prov Patient information: Note initiated : 09/15/19 at 10:00 am Service Date, if different from initiated Date: [] Patient: Margarita Kathleen 89 y/o F admitted on 09/13/19 for Hip fracture. Chief Complaint: [] Date of admission: 09/13/19 13:24 Consults: 09/13/19 Consult to Physician [CONS] Stat Comment: Consulting Provider: Lester Salguero Reason For Exam: Physician to Consult Consult to Physician [CONS] Stat Comment: Consulting Provider: Yo Saez Reason For Exam: Physician to Consult Medical - DS: Meds - Discharge Medications Prescriptions: Amoxicillin 500 mg PO TID #12 capsule HYDROcodone/APAP 5/325MG [[place] 5-325Mg] 1 tab PO Q4-6HP PRN #60 tab PRN Reason: Pain Prescription Printed Active and Home Medications: Home Medications Acetaminophen [Acetaminophen Extra Strength] 500 mg PO Q6H PRN 09/13/19 [History Confirmed 09/13/19 Last Taken Unknown] Ferrous Sulfate [Iron] 325 mg PO Q2D 09/13/19 [History Confirmed 09/13/19 Last Taken Unknown] HYDROcodone/ACETAMINOPHEN [[place] 5-325 Tablet] 1 each PO Q12HP PRN 09/13/19 [History Confirmed 09/13/19 Last Taken Unknown] Nystatin [Kenalog] 1 dose TOPICAL BID 09/13/19 [History Confirmed 09/13/19 Last Taken Unknown] Omeprazole [PriLOSEC] 20 mg PO ACB 09/13/19 [History Confirmed 09/13/19 Last Taken Unknown] QUEtiapine [SEROquel] 100 mg PO HS 09/13/19 [History Confirmed 09/13/19 Last Taken Unknown] Sertraline [Zoloft] 50 mg PO DAILY 09/13/19 [History Confirmed 09/13/19 Last Taken Unknown] Medical - DS: Hosp Hospital Course: Ms. Kathleen is a 89 year old F Who resides in [facility] living with her son and [id number] and suffered a ground-level fall. No LOC. Patient was found to have a left hip fracture. Patient transferred here for surgery by Dr. Salguero. States she got up in the middle the night several nights ago and lost her balance. Patient's hip pain is currently controlled. Currently in preop 09/14 Tolerated surgery well last yesterday. No overnight events or new complaints. 09/15 Patient little tachycardia's morning hemoglobin dropped to 7.6. Systolic blood pressure in the 90s. Will transfuse 1 unit of blood. Patient denies any pains or complaints. A: *Left hip fracture: s/p ORIF (09/13) *Dementia: *Depression/anxiety: *GERD: *MOJGAN +post-op anemia: * Discharge diagnosis: Left hip fracture dementia depression anxiety GERD anemia - Time Spent with Patient Total time spent providing and/or coordinating discharge services: Greater than 30 minutes Medical - DS: Exam - Constitutional Vitals: Vital Signs Temp Pulse Resp BP BP BP Pulse Ox 09/15/19 07:38 97.9 F 108 H 16 96/62 97 09/15/19 03:55 98.5 F 114 H 16 93/64 97 09/14/19 22:40 98.7 F 106 H 14 91/53 92 09/14/19 20:00 98 F 79 16 92/60 91 09/14/19 19:09 98 F 79 16 92/60 91 09/14/19 16:00 98.2 F 20 123/58 95 09/14/19 12:00 99 F 20 99/55 96 Intake and Output 09/14/19 09/15/19 09/15/19 21:59 05:59 13:59 Intake Total 1920 1187 467 Output Total 200 200 Balance 1720 987 467 Intake: IV 1000 887 467 Sodium Chloride 0.9% 1,000 ml @ 1000 887 217 60 mls/hr [facility][id number] [facility] Rx#: [id number] Sodium Chloride 0.9% 250 ml @ 250 125 mls/hr IV [facility] ONE Rx#: [id number] Oral 920 300 Output: Urine Catheter Amount 200 200 Other: Meal orange sherbert orange sherbert Percent of Meal Consumed 100% 100% Feeding Ability Total Assistance Total Assistance Urine Appearance Clear Uretheral (Reddy) Clear Urine Color Dark Yellow Uretheral (Reddy) Dark Alejandra Weight 49.986 kg Medical - DS: Data Labs on day of discharge: Labs from last 24 hours 09/15/19 09/15/19 09/15/19 05:35 05:35 05:35 WBC 4.9 RBC 2.38 L Hgb 7.6 L Hct 23.9 L MCV 100.4 H MCH 31.9 MCHC 31.8 RDW 13.4 Plt Count 110 L MPV 10.5 H Gran % 69.6 Lymph % (Auto) 20.5 [place] % (Auto) 7.3 Eos % (Auto) 2.4 Baso % (Auto) 0.2 Gran # 3.43 Lymph # (Auto) 1.01 L [place] # (Auto) 0.36 Eos # (Auto) 0.12 Baso # (Auto) 0.01 PT 19.5 H INR 1.6 H Sodium 137 Potassium 4.2 Chloride 109 H Carbon Dioxide 20 L Anion Gap 8.0 BUN 31 H Creatinine 0.8 GFR Calculation 66 Glucose 117 H Uric Acid 3.6 Calcium 8.4 L Phosphorus 2.3 L Magnesium 1.6 Total Bilirubin 0.3 Direct Bilirubin < 0.2 GGT 14 AST 9 ALT < 5 Alkaline Phosphatase 66 Lactate Dehydrogenase 147 Total Protein 5.0 L Albumin 2.9 L Globulin 2.1 L Albumin/Globulin Ratio 1.4 Triglycerides 68 09/14/19 15:00 WBC RBC Hgb 8.4 L Hct 26.0 L MCV MCH MCHC RDW Plt Count MPV Gran % Lymph % (Auto) [place] % (Auto) Eos % (Auto) Baso % (Auto) Gran # Lymph # (Auto) [place] # (Auto) Eos # (Auto) Baso # (Auto) PT INR Sodium Potassium Chloride Carbon Dioxide Anion Gap BUN Creatinine GFR Calculation Glucose Uric Acid Calcium Phosphorus Magnesium Total Bilirubin Direct Bilirubin GGT AST ALT Alkaline Phosphatase Lactate Dehydrogenase Total Protein Albumin Globulin Albumin/Globulin Ratio Triglycerides Medical - DS: A/P - Patient/Caregiver Discharge Instructions Activity: as per physical therapy Diet: Regular Diet Prescriptions: HYDROcodone/APAP 5/325MG [[place] 5-325Mg] 1 tab PO Q4-6HP PRN #60 tab PRN Reason: Pain Prescription Printed Other Amb Orders: OT Discharge Order Location: None Selected Physical Therapy at Discharge - General Location: None Selected - Follow up Plan Follow up with: Lester Salguero MD [Physician] - Prognosis: Fair Rehab Potential: Fair I certify that the patient requires SNF services: Yes Overall status at discharge: patient is progressing back to baseline Medical - DS: Qual - VTE Deep Vein Thrombosis/Pulmonary Embolism Present on Admission: No
[2019-09-15] MEDS ORDERED: WARFARIN 1 MG TABLET PO ONE (14:00)
[2019-09-15] MEDS: PIPERACILLIN SODIUM/TAZOBACTAM 2.25 GM in DEXTROSE 5% IN WATER 50 ML IV SCH ×2 (16:30→21:35)
[2019-09-15 17:19] LABS: Hematocrit 31.1 % (34.1-44.9); Hemoglobin 10.1 g/dL (11.2-15.7)
[2019-09-15] MEDS: QUEtiapine 100 MG TABLET PO SCH (20:04)
[2019-09-16] MEDS: PIPERACILLIN SODIUM/TAZOBACTAM 2.25 GM in DEXTROSE 5% IN WATER 50 ML IV SCH ×2 (06:01→11:10)
[2019-09-16] MEDS: 0.9 % SODIUM CHLORIDE 10 ML SYRINGE IV SCH ×3 (06:35→20:29)
[2019-09-16 07:04] LABS: INR 1.9 (0.9-1.1); Prothrombin Time 22.5 sec (11.9-14.5)
[2019-09-16] MEDS: HYDROcodone/APAP 5/325MG TABLET PO PRN ×3 (09:09→20:28)
[2019-09-16] MEDS: SERTRALINE 50 MG TABLET PO SCH (09:09)
[2019-09-16] MEDS: DOCUSATE SODIUM 100 MG CAPSULE PO SCH ×2 (09:09→20:28)
[2019-09-16] MEDS: FAMOTIDINE 20 MG TABLET PO SCH ×2 (09:09→20:28)
--- NOTE | 2019-09-16 09:10 | Internal Med Progress Note ---
Medical - PN: Subj Patient information: Note initiated : 09/16/19 at 9:08 am Service Date, if different from initiated Date: [] Patient: Margarita Kathleen 89 y/o F admitted on 09/13/19 for Hip fracture. Chief Complaint: [] Interval history: Ms. Kathleen is a 89 year old F Who resides in [facility] living with her son and [id number] and suffered a ground-level fall. No LOC. Patient was found to have a left hip fracture. Patient transferred here for surgery by Dr. Salguero. States she got up in the middle the night several nights ago and lost her balance. Patient's hip pain is currently controlled. Currently in preop 09/14 Tolerated surgery well last yesterday. No overnight events or new complaints. 09/15 Patient little tachycardia's morning hemoglobin dropped to 7.6. Systolic blood pressure in the 90s. Will transfuse 1 unit of blood. Patient denies any pains or complaints. 09/16 Doing well. No overnight events. No complaints. Urine culture from lateral yesterday showed greater than 100,000 of E. coli and enterococcus. Patient started on Zosyn initially and transition to amoxicillin today. Review of Systems: denies headache/fever/chills/nausea/vomiting/chest or abdominal umesh n/cough/dyspnea/diarrhea. Otherwise see above. - Constitutional Vitals: Vital Signs Temp Pulse Resp BP Pulse Ox 98.9 F 95 H 20 106/55 96 09/16/19 06:57 09/16/19 03:50 09/16/19 06:57 09/16/19 06:57 09/16/19 06:57 Period Temp Pulse Resp BP Sys/Kahn Pulse Ox Last 24 Hr 98.4 F-99.3 F 82-118 12-24 93-141/55-82 91-97 Intake and Output 09/15/19 09/16/19 09/16/19 21:59 05:59 13:59 Intake Total 665 425 50 Output Total 600 325 Balance 65 100 50 Weight 51.936 kg Intake & Output: Intake & Output 09/15/19 09/16/19 09/16/19 21:59 05:59 13:59 Intake Total 665 425 50 Output Total 600 325 Balance 65 100 50 Weight 51.936 kg Intake: IV 100 50 50 Zosyn 2.25 gm In Dextrose 5% in 50 50 50 Water 50 ml @ 100 mls/hr IV Q6H [facility] Rx#:[id number] Oral 240 375 Blood Product 325 Output: Urine Catheter Amount 600 325 Other: Meal Dinner Percent of Meal Consumed 100% Feeding Ability Assist with Tray Set Up Urine Appearance Clear Uretheral (Reddy) Clear Urine Color Light Alejandra Uretheral (Reddy) Light Aeljandra Exam: General: Alert, Awake, No acute Distress Eyes/N/T: EOMI, Head/Neck: neck supple, CV: RRR, No murmurs, Pulm: Clear b/l, no wheezing/rhonchi/rales Abd: soft, nontender, +BS x4 Ext: no clubbing/cyanosis/edema. Neuro: Alert, no focal deficits, moves all extremities, Skin: warm/dry Medical - PN: Obj Da - Labs CBC & Chem 7: 09/15/19 16:05 09/15/19 05:35 Labs: Abnormal Lab Results 09/16/19 09/15/19 09/15/19 05:45 16:05 05:35 WBC RBC Hgb 10.1 L Hct 31.1 L POC Hct MCV Plt Count MPV Lymph # (Auto) PT 22.5 H INR 1.9 H Chloride 109 H Carbon Dioxide 20 L Anion Gap POC BUN BUN 31 H Glucose 117 H POC Glucose Calcium 8.4 L POC WB Ioniz Calcium Phosphorus 2.3 L Total Protein 5.0 L Albumin 2.9 L Globulin 2.1 L 09/15/19 09/15/19 09/14/19 05:35 05:35 15:00 WBC RBC 2.38 L Hgb 7.6 L 8.4 L Hct 23.9 L 26.0 L POC Hct MCV 100.4 H Plt Count 110 L MPV 10.5 H Lymph # (Auto) 1.01 L PT 19.5 H INR 1.6 H Chloride Carbon Dioxide Anion Gap POC BUN BUN Glucose POC Glucose Calcium POC WB Ioniz Calcium Phosphorus Total Protein Albumin Globulin 09/14/19 09/14/19 09/14/19 05:50 05:50 05:50 WBC 4.4 L RBC 2.47 L Hgb 8.0 L Hct 24.3 L POC Hct MCV Plt Count 116 L MPV 10.5 H Lymph # (Auto) 0.73 L PT 15.8 H INR 1.2 H Chloride 109 H Carbon Dioxide Anion Gap 6.0 L POC BUN BUN 25 H Glucose 116 H POC Glucose Calcium POC WB Ioniz Calcium Phosphorus 2.4 L Total Protein 4.8 L Albumin 3.0 L Globulin 1.8 L 09/13/19 09:54 WBC RBC Hgb Hct POC Hct 33.0 L MCV Plt Count MPV Lymph # (Auto) PT INR Chloride Carbon Dioxide Anion Gap POC BUN 29 H BUN Glucose POC Glucose 147 H Calcium POC WB Ioniz Calcium 1.33 H Phosphorus Total Protein Albumin Globulin Meds: Medications Acetaminophen (Tylenol) 650 mg PO Q6HP PRN PRN Reason: PAIN/FEVER > 101 Hydrocodone Bitart/Acetaminophen ([place] 5/325mg) 1 tab PO Q4HP PRN PRN Reason: PAIN LEVEL 3-6 Last Admin: 09/15/19 20:04 Dose: 1 tab Documented by: Albuterol/Ipratropium (Duoneb) 3 ml NEB Q4HP PRN PRN Reason: Shortness Of Breath Amoxicillin (Amoxicillin) 500 mg PO TID [facility] Stop: 09/20/19 09:01 Bisacodyl (Dulcolax) 10 mg [place] Q2-3DAYS PRN PRN Reason: Constipation Docusate Sodium (Colace) 100 mg PO BID [facility] Last Admin: 09/15/19 20:04 Dose: 100 mg Documented by: Famotidine (Pepcid) 20 mg PO BID [facility] Last Admin: 09/15/19 20:04 Dose: 20 mg Documented by: Potassium Chloride 40 meq/ (Dextrose) 520 mls @ 130 mls/hr IV UD PRN PRN Reason: Potassium < 3 Magnesium Sulfate (Magnesium Sulfate) 2 gm in 50 mls @ 50 mls/hr IV UD PRN PRN Reason: Magnesium </= 1.6 Last Infusion: 09/15/19 16:27 Dose: Infused Documented by: Piperacillin Sod/Tazobactam (Sod 2.25 gm/ Dextrose) 50 mls @ 100 mls/hr IV Q6H [facility] Stop: 09/16/19 10:29 Last Infusion: 09/16/19 06:35 Dose: Infused Documented by: Magnesium Hydroxide (Milk Of Magnesia) 30 ml PO BIDP PRN PRN Reason: Constipation Morphine Sulfate (Morphine) 0 mg IV Q1HP PRN; Protocol PRN Reason: Per Pain Protocol Last Admin: 09/15/19 17:05 Dose: 2 mg Documented by: Ondansetron HCl (Zofran) 4 mg IV Q4HP PRN PRN Reason: Nausea And Vomiting Polyethylene Glycol (Miralax) 17 gm PO DAILYP PRN PRN Reason: Constipation Potassium Chloride (Kdur) 40 meq PO UD PRN PRN Reason: Potssium is 3-3.5 Potassium Chloride (Kdur) 40 meq PO UD PRN PRN Reason: Potassium < 3 Quetiapine Fumarate (Seroquel) 100 mg PO HS [facility] Last Admin: 09/15/19 20:04 Dose: 100 mg Documented by: Senna (Senokot) 2 tab PO DAILYP PRN PRN Reason: Constipation Sertraline HCl (Zoloft) 50 mg PO DAILY [facility] Last Admin: 09/15/19 08:57 Dose: 50 mg Documented by: Sodium Biphosphate/Sodium Phosphate (Fleets Adult) 1 dose [place] Q3-4DAYS PRN PRN Reason: Constipation Sodium Chloride (Saline Flush) 10 ml IV Q8 [facility] Last Admin: 09/15/19 21:37 Dose: 10 ml Documented by: Throat Lozenges (Cepacol) 1 lozenge PO PRN PRN PRN Reason: Sore Throat Warfarin Sodium (Coumadin Per Pharmacy) 1 order PO [facility] Warfarin Sodium (Coumadin) 1 mg PO ONCE@1400 ONE Stop: 09/16/19 14:01 Medical - PN: A/P - Time Spent With Patient Total time spent is greater than 50% in coordination of care (as documented) at patient's floor/unit and/or counseling patient: - Narrative A/P Narrative: A: *Left hip fracture: s/p ORIF (09/13) *Dementia: *Depression/anxiety: *GERD: *MOJGAN +post-op anemia: *UTI (E. coli and enterococcus ): P: -[facility] -Pain control -High risk for post-op delirium -Continue home psych meds -amoxicillin -PT/OT -possible d/c to [facility] today -ppx: warfarin per pharm/home PPI DNR Medical - PN: Qual - VTE Deep Vein Thrombosis/Pulmonary Embolism Present on Admission: No
[2019-09-16] MEDS ORDERED: WARFARIN 1 MG TABLET PO ONE (14:00)
--- NOTE | 2019-09-16 14:35 | Discharge Summary ---
Ortho Discharge Plan - General - Patient Instructions Diet: Regular Diet Activity: weight bearing as tolerated Dressing Care: Brittany Ag - leave on for 5 days (then dry dressing change daily after) - Problem Maintenance (1) Hip fracture, left Status: Acute Qualifiers: Encounter type: subsequent encounter Fracture type: closed Fracture healing: with routine healing Qualified Code(s): S72.002D - Fracture of unspecified part of neck of left femur, subsequent encounter for closed fracture with routine healing - Follow Up Plan Follow Up Appointments: Lester Salguero MD [Physician] - Disposition: [facility] Bed Prognosis: Fair Rehab Potential: Fair - Orders For Discharge Prescriptions: Amoxicillin 500 mg PO TID #12 cap HYDROcodone/APAP 5/325MG [[place] 5-325Mg] 1 tab PO Q4-6HP PRN #60 tab PRN Reason: Pain Prescription Printed Additional Discharge Orders: OT Discharge Order Location: None Selected Physical Therapy at Discharge - General Location: None Selected
[2019-09-16] MEDS: AMOXICILLIN 250 MG CAPSULE PO SCH ×2 (14:58→20:28)
[2019-09-16] MEDS: QUEtiapine 100 MG TABLET PO SCH (20:28)
[2019-09-17] MEDS: 0.9 % SODIUM CHLORIDE 10 ML SYRINGE IV SCH (05:16)
[2019-09-17 06:14] LABS: INR 1.6 (0.9-1.1); Prothrombin Time 19.5 sec (11.9-14.5)
--- NOTE | 2019-09-17 07:55 | Discharge Summary ---
Medical - DS: Prov Patient information: Note initiated : 09/17/19 at 7:52 am Service Date, if different from initiated Date: [] Patient: Margarita Kathleen 89 y/o F admitted on 09/13/19 for Hip fracture. Chief Complaint: [] Date of admission: 09/13/19 13:24 Discharge date: 09/17/19 Consults: 09/13/19 Consult to Physician [CONS] Stat Comment: Consulting Provider: Lester Salguero Reason For Exam: Physician to Consult Consult to Physician [CONS] Stat Comment: Consulting Provider: Yo Saez Reason For Exam: Physician to Consult Medical - DS: Meds - Discharge Medications Prescriptions: Amoxicillin 500 mg PO TID #12 cap Enoxaparin [Lovenox] 30 mg SQ BID #56 syringe HYDROcodone/APAP 5/325MG [[place] 5-325Mg] 1 tab PO Q4-6HP PRN #60 tab PRN Reason: Pain Prescription Printed Active and Home Medications: Home Medications Acetaminophen [Acetaminophen Extra Strength] 500 mg PO Q6H PRN 09/13/19 [History Confirmed 09/13/19 Last Taken Unknown] Ferrous Sulfate [Iron] 325 mg PO Q2D 09/13/19 [History Confirmed 09/13/19 Last Taken Unknown] HYDROcodone/ACETAMINOPHEN [[place] 5-325 Tablet] 1 each PO Q12HP PRN 09/13/19 [History Confirmed 09/13/19 Last Taken Unknown] Nystatin 1 dose TOPICAL BID 09/13/19 [History Confirmed 09/13/19 Last Taken Unknown] Omeprazole [Prilosec] 20 mg PO ACB 09/13/19 [History Confirmed 09/13/19 Last Taken Unknown] QUEtiapine [Seroquel] 100 mg PO HS 09/13/19 [History Confirmed 09/13/19 Last Taken Unknown] Sertraline [Zoloft] 50 mg PO DAILY 09/13/19 [History Confirmed 09/13/19 Last Taken Unknown] HYDROcodone/APAP 5/325MG [[place] 5-325Mg] 1 tab PO Q4-6HP PRN #60 tab 09/15/19 [Rx Last Taken Unknown] Amoxicillin 500 mg PO TID #12 cap 09/16/19 [Rx Last Taken Unknown] Enoxaparin [Lovenox] 30 mg SQ BID #56 syringe 09/17/19 [Rx Last Taken Unknown] Medical - DS: Hosp Hospital Course: Discharge diagnosis -Left hip fracture status post ORIF. Managed per orthopedics. Discharging as per recommendation of orthopedics with outpatient follow-up. -E. coli/enterococci UTI on amoxicillin for additional 3 days History of dementia remained stable Anxiety depression remained stable on quetiapine/sertraline GERD continue on PPI Blood loss deficiency anemia status post 1 unit PRBC transfusion Brief hospital course Ms. Kathleen is a 89 year old F Who resides in [facility] living with her son and [id number] and suffered a ground-level fall. No LOC. Patient was found to have a left hip fracture. Patient transferred here for surgery by Dr. Salguero. States she got up in the middle the night several nights ago and lost her balance. Patient's hip pain is currently controlled. Currently in preop 09/14 Tolerated surgery well last yesterday. No overnight events or new complaints. 09/15 Patient little tachycardia's morning hemoglobin dropped to 7.6. Systolic blood pressure in the 90s. Will transfuse 1 unit of blood. Patient denies any pains or complaints. 09/16 Doing well. No overnight events. No complaints. Urine culture from lateral yesterday showed greater than 100,000 of E. coli and enterococcus. Patient started on Zosyn initially and transition to amoxicillin today. 09/17-discharging as per OT recommendations. Patient continues on amoxicillin for E. coli and enterococci UTI Discharge diagnosis: . - Time Spent with Patient Total time spent providing and/or coordinating discharge services: Greater than 30 minutes Medical - DS: Exam - Constitutional Vitals: Vital Signs Temp Pulse Resp BP Pulse Ox 09/17/19 04:00 97.5 F 95 H 18 121/68 96 09/17/19 00:00 97.3 F 85 18 99/65 97 09/16/19 19:40 97.8 F 87 20 101/56 97 09/16/19 19:20 95 09/16/19 16:00 98.7 F 73 18 98/60 95 09/16/19 12:20 99.2 F H 91/49 96 Intake and Output 09/16/19 09/17/19 09/17/19 21:59 05:59 13:59 Intake Total 1240 Output Total 150 3 Balance 1090 -3 Intake: Oral 1240 Output: Void Amount 150 # of times incontinent of urine 3 Other: Urine Appearance Clear Urine Color Bright Yellow Urine Odor Normal Weight 115 lb 7 oz Medical - DS: Data Labs on day of discharge: Labs from last 24 hours 09/17/19 05:21 PT 19.5 H INR 1.6 H Medical - DS: A/P - Patient/Caregiver Discharge Instructions Activity: as per physical therapy, increase activity as tolerated Diet: Regular Diet Additional Instructions: Diet: Regular Diet Activity: weight bearing as tolerated Dressing Care: Aquacel Ag - leave on for 5 days (then dry dressing change daily after) Continue amoxicillin for additional 3 days. Prescriptions: Amoxicillin 500 mg PO TID #12 cap Enoxaparin [Lovenox] 30 mg SQ BID #56 syringe HYDROcodone/APAP 5/325MG [[place] 5-325Mg] 1 tab PO Q4-6HP PRN #60 tab PRN Reason: Pain Prescription Printed Other Amb Orders: OT Discharge Order Location: None Selected Physical Therapy at Discharge - General Location: None Selected - Follow up Plan Follow up with: Lester Salguero MD [Physician] - Disposition: Xfer As Swing Bed ([facility]) Prognosis: Fair Rehab Potential: Fair I certify that the patient requires SNF services: Yes Overall status at discharge: patient is progressing back to baseline Medical - DS: Qual - VTE Deep Vein Thrombosis/Pulmonary Embolism Present on Admission: No
[2019-09-17] MEDS: DOCUSATE SODIUM 100 MG CAPSULE PO SCH (08:27)
[2019-09-17] MEDS: SERTRALINE 50 MG TABLET PO SCH (08:27)
[2019-09-17] MEDS: FAMOTIDINE 20 MG TABLET PO SCH (08:27)
[2019-09-17] MEDS: HYDROcodone/APAP 5/325MG TABLET PO PRN (08:27)
[2019-09-17] MEDS: AMOXICILLIN 250 MG CAPSULE PO SCH (08:27)
== END 2019-09-17 08:53 | disposition swing bed (61) | DRG 481 ==
LOC: ED 09:06 → SUR 10:31 → MEDSUR 13:24
PROVIDERS: ADMIT Internal Medicine; ATTEND Orthopaedic Surgery